=== PATIENT | female | born 1990 ===

== ENCOUNTER 2023-03-19 10:07 | Outpatient (CLI) | payer OTHER, SELFPAY ==
--- NOTE | ~2023-03-19 | XR_ITS ---
EXAMINATION: XR lumbar spine 2-3V DATE: 03/19/2023 11:01 INDICATION: Back and sacral pain TECHNIQUE: Anteroposterior and lateral views of the lumbar spine, and cone-down lateral view of the l umbosacral junction were obtained. COMPARISON: None. FINDINGS: Bone alignment is normal. There is no fracture. The vertebral body heights and intervertebr al disc spaces are maintained. 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 Sm all degenerative osteophytes project from the anterior endplates of multiple vertebral bodies. Phlebo liths are noted in the pelvis. IMPRESSION: 1. Mild lumbar spondylosis without acute findings. Reviewed, dictated and finalized at location L.
--- NOTE | ~2023-03-19 | XR_ITS ---
EXAMINATION: XR sacrum coccyx min 2V INDICATION: Sacrococcygeal pain TECHNIQUE: Three views of the sacrum and coccyx are obtained. COMPARISON: None available FINDINGS: Bone alignment is normal. There is no fracture. Phleboliths are noted in the pelvis. IMPRESSION: 1. No acute osseous abnormality. Reviewed, dictated and finalized at location L.
[2023-03-19 10:58] LABS: Basophils Percent Auto 0.5 % (0.2-1.2); Eosinophils Absolute Auto 0.1 K/mm3 (0-0.3); Eosinophils Percent Auto 1.6 % (0-4.4); Hematocrit 43.4 % (37.0-47.0); Immature Granulocyte Absolute 0.01 K/mm3 (0.00-0.031); Immature Granulocyte Percent A 0.1 % (0-0.5); Lymphocytes Absolute Auto 1.62 K/mm3 (0.9-3.2); Lymphocytes Percent Auto 21.7 % (18.3-44.2); Mean Corpuscular HGB Conc 34.6 g/dl (32-36); Mean Corpuscular Hemoglobin 33.2 pg (26-34); Mean Platelet Volume 10.4 fl (7.4-10.4); Monocytes Absolute Auto 0.6 K/mm3 (0.1-0.6); Monocytes Percent Auto 7.5 % (2.6-8.5); Neutrophils Absolute Auto 5.1 K/mm3 (1.3-6.7); Neutrophils Percent Auto 68.6 % (45.5-73.1); Platelet Count Result 360 k/mm3 (150-375); Red Blood Count 4.52 M/mm3 (4.2-5.4); Red Cell Distribution Width 11.9 % (11.5-14.5); White Blood Count 7.5 K/mm3 (4.5-10.0)
[2023-03-19 11:12] LABS: Alanine Aminotransferase 19 U/L (6-35); Albumin Level 4.9 g/dL (3.5-5.1); Alkaline Phosphatase 53 U/L (38-126); Anion Gap 11 mmol/L (8-16); Aspartate Amino Transferase 25 U/L (14-36); Bilirubin,Total 0.6 mg/dL (0.2-1.3); Blood Urea Nitrogen 12 mg/dL (7-17); Calcium 9.4 mg/dL (8.4-10.2); Carbon Dioxide 24 mmol/L (22-30); Chloride 104 mmol/L (98-107); Cholesterol 148 mg/dL (0-200); Estimated Glomerular Filt Rate > 60; Glucose 93 mg/dL (65-110); HDL Direct 35 mg/dL; Potassium 3.9 mmol/L (3.4-5.0); Sodium 139 mmol/L (137-145); Triglycerides 87 mg/dL (<150)
[2023-03-19 11:23] LABS: LDL Cholesterol Direct 84 mg/dL
[2023-03-19 11:25] LABS: Iron 73 ug/dL (37-170)
[2023-03-19 11:27] LABS: Hemoglobin A1C 4.5 % (<5.7)
[2023-03-19 11:38] LABS: Percent Iron Saturation 22 % (20-50)
[2023-03-19 11:41] LABS: Free T4 Free Thyroxine 1.31 ng/mL (0.78-2.19)
== END 2023-03-19 10:08 | disposition home or self-care (01) ==
PROVIDERS: Visit Provider Physician Assistant
DX: R53.83 Other fatigue (principal); M47.816 Spondylosis without myelopathy or radiculopathy, lumbar region
CPT/HCPCS: 36415; 72100; 72220; 80053; 80061; 83036; 83540; 83550; 84439; 84443; 85025